=== PATIENT | female | born 1980 | race Caucasian/White ===

== ENCOUNTER 2017-07-25 16:28 | Emergency (ER) | payer OTHER ==
[2017-07-25 16:36] VITALS: RESP 18
[2017-07-25] MEDS ORDERED: SODIUM CHLORIDE 0.9% 1,000 ML IV ONE (17:30)
[2017-07-25] MEDS ORDERED: DEXAMETHASONE SOD PHOSPHATE 10 MG/ML 1 ML VIAL IV STA (17:30)
[2017-07-25] MEDS ORDERED: diphenhydrAMINE 50 MG/ML 1 ML VIAL IVP STA (17:30)
[2017-07-25] MEDS ORDERED: METOCLOPRAMIDE 5 MG/ML 2 ML VIAL IVP STA (17:30)
[2017-07-25] MEDS ORDERED: KETOROLAC 30 MG/ML 1 ML VIAL IVP STA (17:30)
[2017-07-25 18:46] LABS: Basophils # (A) 0.1 k/uL (0-0.2); Basophils % (A) 0 %; Eosinophils # (A) 0.1 k/uL (0-0.7); Eosinophils % (A) 1 %; HCT 39.7 % (34.0-46.0); HGB 12.7 gm/dL (11.4-16.0); Hypochromasia Slight; Lymphocytes % (A) 24 %; MCH 23.7 pg (25.0-35.0); MCHC 31.9 g/dL (31.0-37.0); MCV 74.2 fL (80.0-100.0); Microcytosis Slight; Monocytes # (A) 0.5 k/uL (0-1.0); Monocytes % (A) 4 %; Neutrophils # (A) 8.8 k/uL (1.3-7.7); Neutrophils % (A) 70 %; Platelet Count 195 k/uL (150-450); RBC 5.35 m/uL (3.80-5.40); RDW 15.6 % (11.5-15.5); WBC 12.6 k/uL (3.8-10.6)
[2017-07-25 18:56] LABS: Anion Gap 11 mmol/L; Blood Urea Nitrogen 11 mg/dL (7-17); Calcium 9.3 mg/dL (8.4-10.2); Carbon Dioxide 25 mmol/L (22-30); Chloride 104 mmol/L (98-107); Glucose 92 mg/dL (74-99); Potassium 4.6 mmol/L (3.5-5.1); Sodium 140 mmol/L (137-145)
[2017-07-25 19:01] LABS: Appearance,Urine Clear (Clear); Bacteria,Urine Moderate /hpf; Bilirubin,Urine Negative (Negative); Blood,Urine Negative (Negative); Color,Urine Yellow; Glucose,Urine (UA) Negative (Negative); Ketones,Urine Negative (Negative); Leukocyte Esterase,Urine Small (Negative); Mucus,Urine Rare /hpf; Nitrite,Urine Positive (Negative); Protein,Urine Negative (Negative); RBC,Urine 1 /hpf (0-5); Specific Gravity,Urine 1.013 (1.001-1.035); Squamous Epithelial Cell,Urine 2 /hpf (0-4); Urobilinogen,Urine <2.0 mg/dL (<2.0); WBC,Urine 8 /hpf (0-5)
[2017-07-25 19:11] LABS: Amphetamine Screen,Urine Not Detected (NotDetected); Barbiturate Screen,Urine Detected (NotDetected); Benzodiazepines Screen,Urine Not Detected (NotDetected); Cocaine Screen,Urine Not Detected (NotDetected); Methadone Screen, Urine Not Detected (NotDetected); Opiate Screen,Urine Not Detected (NotDetected); Oxycodone Screen, Urine Not Detected (NotDetected); Phencyclidine Screen,Urine Not Detected (NotDetected); Tricyclic Antidepressant,Urine Not Detected (NotDetected); Urn Cannabinoid Scrn Detected (NotDetected)
[2017-07-25 19:12] LABS: HCG,Quantitative Serum <2.4 mIU/mL
--- NOTE | 2017-07-25 19:24 | ED ---
General Adult HPI - General Chief complaint: Seizure Stated complaint: seizures Time Seen by Provider: 07/25/17 17:15 Source: patient Mode of arrival: wheelchair Limitations: physical limitation - History of Present Illness Initial comments: Patient is a 36-year-old female with a remote history of seizure disorder who presents with a chief complaint of seizure. The patient states that she hasn't had seizures in several years however over the last month she has been having recurrent seizures. These are described as absence seizures. The patient states she's had 16 and the last 48 hours. Her fianc, accompanies her to the emergency department today. He describes two-minute episodes where the patient is a blank stare on her face. He denies any body shaking, or apnea. Patient thinks that this is related to a knot in the back of her head and a headache. - Related Data Home Medications Medication Instructions Recorded Confirmed Methocarbamol [Robaxin] 1,000 mg PO QID 07/25/17 07/25/17 Pregabalin [Lyrica] 200 mg PO BID 07/25/17 07/25/17 Vitamin C/Biotin [Hair, Skin and 1 tab PO DAILY 07/25/17 07/25/17 Nails] clonazePAM [KlonoPIN] 0.5 mg PO Q12H PRN 07/25/1718 traMADol HCL [Ultram] 50 - 100 mg PO TID PRN 07/25/1718 Previous Rx's Medication Instructions Recorded Cephalexin [Keflex] 500 mg PO Q12HR 7 Days #14 cap 07/25/17 Allergies Allergy/AdvReac Type Severity Reaction Status Date / Time duloxetine HCl Allergy Unknown Verified 07/25/17 17:19 [From Cymbalta] Iodinated Contrast- Oral and Allergy Unknown Verified 07/25/17 17:19 IV Dye [Iodinated Contrast Media - IV Dye] latex Allergy Unknown Verified 07/25/17 17:19 methylphenidate HCl Allergy Unknown Verified 07/25/17 17:19 [From Ritalin] morphine Allergy Rash/Hives Verified 07/25/17 17:19 sumatriptan [From Imitrex] Allergy Unknown Verified 07/25/17 17:19 sumatriptan succinate Allergy Unknown Verified 07/25/17 17:19 [From Imitrex] Review of Systems ROS Statement: Those systems with pertinent positive or pertinent negative responses have been documented in the HPI. ROS Other: All systems not noted in ROS Statement are negative. Constitutional: Reports: chills Neurological: Reports: headache Past Medical History Past Medical History: Fibromyalgia, Seizure Disorder Additional Past Medical History / Comment(s): Migraine headaches, History of Any Multi-Drug Resistant Organisms: None Reported Past Surgical History: Back Surgery, Breast Surgery, Section, Cholecystectomy, Orthopedic Surgery, Tubal Ligation Additional Past Surgical History / Comment(s): EGD in 2007, multiple I&D's done to the left breast Past Anesthesia/Blood Transfusion Reactions: Postoperative Nausea & Vomiting ( PONV) Additional Past Anesthesia/Blood Transfusion Reaction / Comment(s): Blood pressure drops per patient Past Psychological History: Anxiety Smoking Status: Current every day smoker Past Alcohol Use History: Rare Past Drug Use History: None Reported General Exam Limitations: physical limitation General appearance: alert, in no apparent distress Head exam: Present: atraumatic, normocephalic Eye exam: Present: normal appearance, PERRL ENT exam: Present: normal exam Neck exam: Present: normal inspection. Absent: meningismus Respiratory exam: Present: normal lung sounds bilaterally. Absent: respiratory distress Cardiovascular Exam: Present: regular rate, normal rhythm GI/Abdominal exam: Present: soft. Absent: distended, tenderness Rectal exam: Present: deferred Extremities exam: Present: normal inspection Neurological exam: Present: alert, oriented X3, abnormal gait (Patient seems to have unsteady gait.), other Psychiatric exam: Present: anxious Skin exam: Present: warm, dry, intact Course Vital Signs 07/25/17 07/25/17 16:32 19:33 Temperature 98.3 F 98.4 F Pulse Rate 97 77 Respiratory 18 18 Rate Blood Pressure 135/75 121/78 O2 Sat by Pulse 99 99 Oximetry Medical Decision Making - Medical Decision Making Patient presents with chief complaint of seizures. On initial evaluation, vital signs are stable, patient is in no acute distress. He states that Dr. Bentley, her primary care doctor, sent her to the emergency department today. Patient will be evaluated with an EKG, basic labs, urinalysis and UDS. Patient complaining of a headache, she was given a headache cocktail for symptomatically relief. EKG performed at 1745 shows normal sinus rhythm with a rate of 78 bpm. EKG is otherwise unremarkable. 8:23 pm I've evaluation of this patient shows evidence of urinary tract infection with a mild elevation in her white count. Labs are otherwise unremarkable. Computed tomography scan of the head without contrast shows no acute intracranial abnormality. I discussed the results and find the patient. She currently states she still in pain. Patient appears anxious, she will be given Xanax prior to discharge. I did discuss this case with Dr. Bentley, the patient's primary care physician, who states that the patient can be discharged and he will see her in the office. Patient was instructed to follow up with primary care in 1-2 days, return to the emergency department if symptoms worsen or change, she was prescribed Keflex for treatment of her urinary tract infection. Patient did not have any further seizure-like episodes in the emergency department. - Lab Data Result diagrams: 07/25/17 18:35 07/25/17 18:35 Lab Results 07/25/17 07/25/17 07/25/17 Range/Units 18:35 18:35 18:40 WBC 12.6 H (3.8-10.6) k/uL RBC 5.35 (3.80-5.40) m/uL Hgb 12.7 (11.4-16.0) gm/dL Hct 39.7 (34.0-46.0) % MCV 74.2 L (80.0-100.0) fL MCH 23.7 L (25.0-35.0) pg MCHC 31.9 (31.0-37.0) g/dL RDW 15.6 H (11.5-15.5) % Plt Count 195 (150-450) k/uL Neutrophils % 70 % Lymphocytes % 24 % Monocytes % 4 % Eosinophils % 1 % Basophils % 0 % Neutrophils # 8.8 H (1.3-7.7) k/uL Lymphocytes # 3.0 (1.0-4.8) k/uL Monocytes # 0.5 (0-1.0) k/uL Eosinophils # 0.1 (0-0.7) k/uL Basophils # 0.1 (0-0.2) k/uL Hypochromasia Slight Microcytosis Slight Sodium 140 (137-145) mmol/L Potassium 4.6 (3.5-5.1) mmol/L Chloride 104 (98-107) mmol/L Carbon Dioxide 25 (22-30) mmol/L Anion Gap 11 mmol/L BUN 11 (7-17) mg/dL Creatinine 0.52 (0.52-1.04) mg/dL Est GFR (CKD-EPI)AfAm >90 (>60 ml/min/1.73 sqM) Est GFR (CKD-EPI)NonAf >90 (>60 ml/min/1.73 sqM) Glucose 92 (74-99) mg/dL Calcium 9.3 (8.4-10.2) mg/dL HCG, Quant <2.4 mIU/mL Urine Color Yellow Urine Appearance Clear (Clear) Urine pH 6.0 (5.0-8.0) Ur Specific Kimberly 1.013 (1.001-1.035) Urine Protein Negative (Negative) Urine Glucose (UA) Negative (Negative) Urine Ketones Negative (Negative) Urine Blood Negative (Negative) Urine Nitrite Positive H (Negative) Urine Bilirubin Negative (Negative) Urine Urobilinogen <2.0 (<2.0) mg/dL Ur Leukocyte Esterase Small H (Negative) Urine RBC 1 (0-5) /hpf Urine WBC 8 H (0-5) /hpf Ur Squamous Epith Cells 2 (0-4) /hpf Urine Bacteria Moderate H (None) /hpf Urine Mucus Rare H (None) /hpf Urine Opiates Screen Not Detected (NotDetected) Ur Oxycodone Screen Not Detected (NotDetected) Urine Methadone Screen Not Detected (NotDetected) Ur Propoxyphene Screen Not Detected (NotDetected) Ur Barbiturates Screen Detected H (NotDetected) U Tricyclic Antidepress Not Detected (NotDetected) Ur Phencyclidine Scrn Not Detected (NotDetected) Ur Amphetamines Screen Not Detected (NotDetected) U Methamphetamines Scrn Not Detected (NotDetected) U Benzodiazepines Scrn Not Detected (NotDetected) Urine Cocaine Screen Not Detected (NotDetected) U Marijuana (THC) Screen Detected H (NotDetected) Disposition Clinical Impression: Witnessed seizure-like activity Disposition: HOME SELF-CARE Condition: Good Instructions: New-Onset Seizure in Adults (ED) Prescriptions: Cephalexin [Keflex] 500 mg PO Q12HR 7 Days #14 cap Is patient prescribed a controlled substance at discharge?: No Referrals: Noam Bentley MD [Primary Care Provider] - 1-2 days
--- NOTE | 2017-07-25 19:26 | CT ---
EXAMINATION TYPE: CT brain wo con DATE OF EXAM: 07/25/2017 COMPARISON: NONE HISTORY: headache, possible seizure CT DLP: 981.[address] of the brain was performed. The ventricles, basal cisterns and sulci overlying the cerebral convexities demonstrate a normal appe arance. There is no evidence for intracranial hemorrhage or sulcal effacement. No mass effects are seen. Osseous calvarium is intact. If symptoms persist consider MRI as clinically warranted. IMPRESSION: 1. No acute intracranial process is seen at this time.
[2017-07-25] MEDS ORDERED: ALPRAZolam 1 MG TAB PO STA (20:15)
[2017-07-25 20:33] VITALS: BP 131/71; PULSE 65
[2017-07-25 20:37] VITALS: TEMP 98
== END 2017-07-25 20:38 | disposition home or self-care (01) ==
LOC: EC 16:28
DX: R51 Headache (principal); N39.0 Urinary tract infection, site not specified; D72.829 Elevated white blood cell count, unspecified; F41.9 Anxiety disorder, unspecified; G40.909 Epilepsy, unspecified, not intractable, without status epilepticus; M79.7 Fibromyalgia; F17.200 Nicotine dependence, unspecified, uncomplicated; Z79.899 Other long term (current) drug therapy; Z91.041 Radiographic dye allergy status; Z91.040 Latex allergy status; Z88.5 Allergy status to narcotic agent; Z88.8 Allergy status to other drugs, medicaments and biological substances; Z86.69 Personal history of other diseases of the nervous system and sense organs
CPT/HCPCS: 99284; 96374; 96375 ×3; 96361 ×2; 36415; 93005; 80048; 85025; 81001; 84702; 80306; 70450; J1200; J1100; J2765; J1885

== ENCOUNTER 2017-10-22 23:01 | Emergency (ER) | payer OTHER ==
[2017-10-22 23:28] VITALS: BP 129/82; PULSE 73; RESP 18; TEMP 98.4
[2017-10-23] MEDS ORDERED: KETOROLAC 60 MG/2 ML VIAL IM STA (00:45)
[2017-10-23] MEDS ORDERED: HYDROcodone/APAP 5-325MG 1 EACH TAB PO STA (00:45)
[2017-10-23] MEDS ORDERED: ORPHENADRINE 30 MG/ML 2 ML VIAL IM STA (00:45)
[2017-10-23] MEDS ORDERED: ONDANSETRON ODT 4 MG TAB PO STA (00:57)
--- NOTE | 2017-10-23 01:50 | XR ---
EXAMINATION TYPE: XR lumbar spine 2 or 3V DATE OF EXAM: 10/23/2017 COMPARISON: 05/15/2009 HISTORY: Fell 3 months ago. Pain. TECHNIQUE: 3 views FINDINGS: There are rods and screws fusing posteriorly L4 and L5. There is laminectomy defect of L4 a nd L5. Sacroiliac joints are intact. Vertebra have normal alignment. There is narrowing of L4-5 disc space. There are old screw is in the S1 vertebra. IMPRESSION: No acute abnormality of the lumbar spine. There is new L4-5 posterior fusion surgery comp ared to old exam. There is revision of the L5-S1 fusion surgery. No fracture seen. There is new L4-5 disc space narrowing compared to old exam.
--- NOTE | 2017-10-23 02:05 | ED ---
Back Pain HPI - General Chief Complaint: Back Pain/Injury Stated Complaint: Lower back and hip pain Time Seen by Provider: 10/22/17 23:42 Source: patient, RN notes reviewed, old records reviewed Limitations: physical limitation - History of Present Illness Initial Comments: This Patient is a 37-year-old female presents with chronic lower back and right hip pain. Patient states that it goes down to the right leg. Patient states that she fell 3 months ago on her porch. She was seen by her primary care provider and started on steroids. She's had no recent falls or trauma. She states that today she was walking her leg gave out. She denies any saddle anesthesias.Patient denies any recent fever, chills, shortness of breath, chest pain, nausea vomiting, numbness or tingling, dysuria or hematuria, constipation or diarrhea, headaches or visual changes, or any other current symptoms - Related Data Home Medications Medication Instructions Recorded Confirmed Methocarbamol [Robaxin] 1,000 mg PO QID 07/25/17 10/22/17 Amitriptyline HCl [Elavil] 50 mg PO HS 10/22/17 10/22/17 Previous Rx's Medication Instructions Recorded Cyclobenzaprine [Flexeril] 10 mg PO TID #15 tab 10/23/17 Dexamethasone 0.75 mg PO DAILY #12 tab 10/23/17 HYDROcodone/APAP 5-325MG [[place] 1 tab PO Q6HR PRN #10 tab 10/23/17 5-325] Ibuprofen 800 mg PO TID #20 tablet 10/23/17 Allergies Allergy/AdvReac Type Severity Reaction Status Date / Time duloxetine HCl Allergy Unknown Verified 10/22/17 23:28 [From Cymbalta] Iodinated Contrast- Oral and Allergy Unknown Verified 10/22/17 23:28 IV Dye [Iodinated Contrast Media - IV Dye] latex Allergy Unknown Verified 10/22/17 23:28 methylphenidate HCl Allergy Unknown Verified 10/22/17 23:28 [From Ritalin] morphine Allergy Rash/Hives Verified 10/22/17 23:28 sumatriptan [From Imitrex] Allergy Unknown Verified 10/22/17 23:28 sumatriptan succinate Allergy Unknown Verified 10/22/17 23:28 [From Imitrex] Review of Systems ROS Statement: Those systems with pertinent positive or pertinent negative responses have been documented in the HPI. ROS Other: All systems not noted in ROS Statement are negative. Past Medical History Past Medical History: Fibromyalgia, Seizure Disorder Additional Past Medical History / Comment(s): Migraine headaches, History of Any Multi-Drug Resistant Organisms: None Reported Past Surgical History: Back Surgery, Breast Surgery, Section, Cholecystectomy, Orthopedic Surgery, Tubal Ligation Additional Past Surgical History / Comment(s): EGD in 2008, multiple I&D's done to the left breast, knees, back fusions Past Anesthesia/Blood Transfusion Reactions: Postoperative Nausea & Vomiting ( PONV) Additional Past Anesthesia/Blood Transfusion Reaction / Comment(s): Blood pressure drops per patient Past Psychological History: Anxiety Smoking Status: Current every day smoker Past Alcohol Use History: Rare Past Drug Use History: None Reported General Exam - General Exam Comments Initial Comments: [id number] female. Alert and oriented. No significant distress. Limitations: physical limitation Head exam: Present: atraumatic, normocephalic, normal inspection Eye exam: Present: normal appearance, PERRL, EOMI. Absent: scleral icterus, conjunctival injection, periorbital swelling ENT exam: Present: normal exam, mucous membranes moist Neck exam: Present: normal inspection. Absent: tenderness, meningismus, lymphadenopathy Respiratory exam: Present: normal lung sounds bilaterally. Absent: respiratory distress, wheezes, rales, rhonchi, stridor Cardiovascular Exam: Present: regular rate, normal rhythm, normal heart sounds. Absent: systolic murmur, diastolic murmur, rubs, gallop, clicks GI/Abdominal exam: Present: soft, normal bowel sounds. Absent: distended, tenderness, guarding, rebound, rigid Extremities exam: Present: normal inspection, full ROM, normal capillary refill. Absent: tenderness, pedal edema, joint swelling, calf tenderness Back exam: Present: normal inspection, tenderness (Lumbar spinal tenderness and right sciatic notch tenderness.) Neurological exam: Present: alert, oriented X3, CN II-XII intact Psychiatric exam: Present: normal affect, normal mood Course Vital Signs 10/22/17 23:25 Temperature 98.4 F Pulse Rate 73 Respiratory 18 Rate Blood Pressure 129/82 O2 Sat by Pulse 100 Oximetry Medical Decision Making - Medical Decision Making 37-year-old female with chronic right hip and back pain. She reports she fell 3 months ago. No imaging done at that time. She was started on steroids with PCP. At this time Patient doesn't systems tenderness or sciatic notch. X-rays were performed. There is evidence of the previous revisions of her surgery. There is some disc space narrowing at L4-L5. Patient part of results. She'll follow up with her orthopedic helicopter specialist. The meantime we'll start Patient again and stress steroids also relaxers and pain medication. Discussed follow-up with PCP. All questions answered return parameters were discussed. - Radiology Data Radiology results: report reviewed No acute abnormality of the lumbar spine. There is no L4 posterior fusion surgery. On exam. Revision of L5-S1 fusion surgery. No fracture seen. L4-L5 disc space narrowing compared old exam. Disposition Clinical Impression: Sciatica, right side, Degeneration of intervertebral disc Disposition: HOME SELF-CARE Condition: Good Instructions: Acute Low Back Pain (ED) Additional Instructions: Patient has up with flavor maker. Return to emergency department if any alarming signs or symptoms occur. Prescriptions: Cyclobenzaprine [Flexeril] 10 mg PO TID #15 tab Dexamethasone 0.75 mg PO DAILY #12 tab HYDROcodone/APAP 5-325MG [[place] 5-325] 1 tab PO Q6HR PRN #10 tab PRN Reason: Pain Ibuprofen 800 mg PO TID #20 tablet Is patient prescribed a controlled substance at d/c from ED?: Yes When asked, does pt state using other controlled substances?: No If prescribed controlled substance>3 days was MAPS reviewed?: Prescribed <3 Days If opioid is for acute pain is fill amount 7 days or less?: Yes If Rx opioid, was Start Talking consent form obtained?: Yes Referrals: Noam Bentley MD [Primary Care Provider] - 1-2 days Time of Disposition: 02:01
== END 2017-10-23 02:28 | disposition home or self-care (01) ==
LOC: EC 23:01
DX: M51.16 Intervertebral disc disorders with radiculopathy, lumbar region (principal); M48.061 Spinal stenosis, lumbar region without neurogenic claudication; Z98.1 Arthrodesis status; F41.9 Anxiety disorder, unspecified; F17.200 Nicotine dependence, unspecified, uncomplicated; Z79.899 Other long term (current) drug therapy; Z88.5 Allergy status to narcotic agent; Z88.8 Allergy status to other drugs, medicaments and biological substances; Z91.040 Latex allergy status; Z91.041 Radiographic dye allergy status
CPT/HCPCS: 72100; 99284; 96372 ×2; J2360; J1885

== ENCOUNTER 2017-11-13 17:07 | Emergency (ER) | payer OTHER ==
[2017-11-13 17:14] VITALS: TEMP 98.1
[2017-11-13] MEDS ORDERED: HYDROcodone/APAP 10-325MG 1 EACH TAB PO ONE (18:01)
[2017-11-13 18:24] LABS: Anisocytosis Slight; Basophils % (A) 0 %; Eosinophils # (A) 0.1 k/uL (0-0.7); Eosinophils % (A) 1 %; HCT 39.3 % (34.0-46.0); HGB 12.8 gm/dL (11.4-16.0); Lymphocytes % (A) 34 %; MCH 24.9 pg (25.0-35.0); MCHC 32.5 g/dL (31.0-37.0); MCV 76.5 fL (80.0-100.0); Mean Platelet Volume 7.3; Microcytosis Slight; Monocytes # (A) 0.4 k/uL (0-1.0); Monocytes % (A) 4 %; Neutrophils # (A) 5.3 k/uL (1.3-7.7); Neutrophils % (A) 59 %; Platelet Count 196 k/uL (150-450); RBC 5.14 m/uL (3.80-5.40); RDW 16.7 % (11.5-15.5); WBC 8.9 k/uL (3.8-10.6)
--- NOTE | 2017-11-13 18:35 | ED ---
Back Pain HPI - General Chief Complaint: Back Pain/Injury Stated Complaint: back pain Time Seen by Provider: 11/13/17 17:13 Source: patient Limitations: no limitations - History of Present Illness Initial Comments: This is a37yo female with PMH of chronic low back pain with multiple back surgery including 5 surgeries for debridment following infection from 2014 surgery. Pt states that her original low back fusion was performed by Dr. Whelan and the second Dr. Dobbins where she experienced post-operative infection. Pt has been following her PCP for pain mgmt with norci 7.5 and ibuprofen 800mg. Pt states that since June he low back pain has been worsening, however the last 3 weeks have been the worse. Patient states her baseline back pain as a 6 out of 10 that radiates down legs bilaterally and throbbing in nature. She states that the pain now is greater than 10 out of 10 burning, stabbing pain down the legs bilaterally. Patient denies any trauma or falls that could've caused the change in her back pain. Her primary care referred her to a neurosurgeon who is associated with formerly [facility], [facility]–1983, she has a scheduled appointment for November 17 and an MRI scheduled for November 16. However for the past 2 days patient has increasing right leg weakness. He states she feels though the right leg could give out at any time. Today when she admitted upon ROS of small amount of urinary incontinence. pt could not longer take the pain and she decided to present to the emergency department. She states this pain feels like her chronic low back pain however worse than normal. Pt admits to b/l leg weakness, parathesias and decreased sensation of the lower extremities b/l, and urinary incontinence. Pt denies fever, chills, IV drug use, recent weight loss, injury to the back or lower extremities,, shortness of breath, chest pain, abdominal pain, nausea or vomiting, numbness or tingling, dysuria or hematuria, constipation or diarrhea, headaches or visual changes, or any other complaints. Pt is currently menstruating, denies chance of . - Related Data Home Medications Medication Instructions Recorded Confirmed Methocarbamol [Robaxin] 1,000 mg PO QID PRN 07/25/17 11/13/17 Amitriptyline HCl [Elavil] 50 mg PO HS 10/22/17 11/13/17 Cyclobenzaprine [Flexeril] 10 mg PO TID PRN 11/13/17 11/13/17 HYDROcodone/APAP 7.5-325MG [Rueter 1 - 2 tab PO Q6H PRN 11/13/17 11/13/17 7.5-325] Ibuprofen 800 mg PO TID PRN 11/13/17 11/13/17 Allergies Allergy/AdvReac Type Severity Reaction Status Date / Time duloxetine HCl Allergy Unknown Verified 11/13/17 18:27 [From Cymbalta] Iodinated Contrast- Oral and Allergy Unknown Verified 11/13/17 18:27 IV Dye [Iodinated Contrast Media - IV Dye] latex Allergy Unknown Verified 11/13/17 18:27 methylphenidate HCl Allergy Unknown Verified 11/13/17 18:27 [From Ritalin] morphine Allergy Rash/Hives Verified 11/13/17 18:27 sumatriptan [From Imitrex] Allergy Unknown Verified 11/13/17 18:27 sumatriptan succinate Allergy Unknown Verified 11/13/17 18:27 [From Imitrex] Review of Systems ROS Statement: Those systems with pertinent positive or pertinent negative responses have been documented in the HPI. ROS Other: All systems not noted in ROS Statement are negative. Constitutional: Denies: fever, chills, night sweats ENT: Denies: ear pain Respiratory: Denies: cough, dyspnea, wheezes, hemoptysis, stridor Cardiovascular: Denies: chest pain, palpitations Endocrine: Denies: fatigue Gastrointestinal: Denies: abdominal pain, nausea, vomiting, diarrhea, constipation Genitourinary: Denies: urgency, dysuria, frequency, hematuria Musculoskeletal: Reports: as per HPI, back pain Skin: Denies: rash, lesions, change in color Neurological: Reports: weakness, numbness, paresthesias. Denies: headache, confusion, abnormal gait Past Medical History Past Medical History: Fibromyalgia, Seizure Disorder Additional Past Medical History / Comment(s): Migraine headaches, chronic low back pain-multiple surgeries/lumbar fusion History of Any Multi-Drug Resistant Organisms: None Reported Past Surgical History: Back Surgery, Breast Surgery, Section, Cholecystectomy, Orthopedic Surgery, Tubal Ligation Additional Past Surgical History / Comment(s): EGD in 2007, multiple I&D's done to the left breast, knees, back fusions Past Anesthesia/Blood Transfusion Reactions: Postoperative Nausea & Vomiting ( PONV) Additional Past Anesthesia/Blood Transfusion Reaction / Comment(s): Blood pressure drops per patient Past Psychological History: Anxiety Smoking Status: Current every day smoker Past Alcohol Use History: Rare Past Drug Use History: None Reported General Exam - General Exam Comments Initial Comments: General: The patient is awake and alert, in no distress, and does not appear acutely ill. Eye: Pupils are equal, round and reactive to light, extra-ocular movements are intact. No nystagmus. There is normal conjunctiva bilaterally. No signs of icterus. Ears, nose, mouth and throat: There are moist mucous membranes and no oral lesions. Neck: The neck is supple, there is no tenderness or JVD. Cardiovascular: There is a regular rate and rhythm. No murmur, rub or gallop is appreciated. Respiratory: Lungs are clear to auscultation, respirations are non-labored, breath sounds are equal. No wheezes, stridor, rales, or rhonchi. Gastrointestinal: Soft, non-distended, non-tender abdomen without masses or organomegaly noted. There is no rebound or guarding present. No CVA tenderness. Bowel sounds are unremarkable. No tenderness to palpation over the superior bladder margin. Musculoskeletal: Decreased range of motion with for flexion, hyperextension, lateral flexion or rotation of the lumbar spine secondary to pain. Pain to palpation midline over the lumbar spine. No paravertebral tenderness. No lesions, erythema or rashes of the overlying skin of the lumbar spine. Normal ROM, other lower extremities bilaterally. 4/5 strength of the right leg, 5/5 left leg. Sensation intact however pt states it feels decreased. Pulses equal bilaterally 2+. Hyerrflexia of the patellar and achilles reflexes. Rectal exam- normal normal tone. Pt unable to heel or toe walk secondary to pain. (+) SLR b/ l. Neurological: A&O x 3. CN II-XII intact, There are no obvious motor or sensory deficits. Coordination appears grossly intact. Speech is normal. Skin: Skin is warm and dry and no rashes or lesions are noted. Psychiatric: Cooperative, appropriate mood & affect, normal judgment. Limitations: no limitations Course Vital Signs 11/13/17 11/13/17 17:12 22:46 Temperature 98.1 F 98.1 F Pulse Rate 106 H 82 Respiratory 20 18 Rate Blood Pressure 129/67 123/75 O2 Sat by Pulse 100 97 Oximetry Medical Decision Making - Medical Decision Making Given pt physical examination findings and hx i was concerned for possible cauda equina syndrome, pt given 0.5mg dilaudid for pain mgmt stating that she has never had a reaction in the past. Post residual void 315ml. Rectal exam normal tone. MRI obtained at 7:00pm revealing no areas of severe stenosis of the spinal column or abnormalities of the cauda equina. Radiologist did note mild hydronephrosis.Pt was able to void during her visit, stating it was more than her original void at the beginning of the visit. Pt was given home dose of norco for low back pain, for which she stated helped . CT was reviewed by Dr. Huang, case was discussed in detail. At this time we felt pt was stable for d/ c with urology and neurology f/u. Pt has scheduled neurology appointment for 01/25. Pt was told to keep this appointment and return to the ED for any worsening symptoms. Pt stated she was ready for discharge. Pt discharge instructions were given prior to the addition of urology f/u. However pt was called at home and instructed to call Dr. Arnold to schedule appointment in next 24 hours for urinary incontinence and mild hydronephrosis. Pt agreed. - Lab Data Result diagrams: 11/13/17 18:00 11/13/17 18:00 Lab Results 11/13/17 11/13/17 Range/Units 18:00 18:00 WBC 8.9 (3.8-10.6) k/uL RBC 5.14 (3.80-5.40) m/uL Hgb 12.8 (11.4-16.0) gm/dL Hct 39.3 (34.0-46.0) % MCV 76.5 L (80.0-100.0) fL MCH 24.9 L (25.0-35.0) pg MCHC 32.5 (31.0-37.0) g/dL RDW 16.7 H (11.5-15.5) % Plt Count 196 (150-450) k/uL Neutrophils % 59 % Lymphocytes % 34 % Monocytes % 4 % Eosinophils % 1 % Basophils % 0 % Neutrophils # 5.3 (1.3-7.7) k/uL Lymphocytes # 3.0 (1.0-4.8) k/uL Monocytes # 0.4 (0-1.0) k/uL Eosinophils # 0.1 (0-0.7) k/uL Basophils # 0.0 (0-0.2) k/uL Anisocytosis Slight Microcytosis Slight Sodium 141 (137-145) mmol/L Potassium 3.7 (3.5-5.1) mmol/L Chloride 108 H (98-107) mmol/L Carbon Dioxide 24 (22-30) mmol/L Anion Gap 9 mmol/L BUN 14 (7-17) mg/dL Creatinine 0.64 (0.52-1.04) mg/dL Est GFR (CKD-EPI)AfAm >90 (>60 ml/min/1.73 sqM) Est GFR (CKD-EPI)NonAf >90 (>60 ml/min/1.73 sqM) Glucose 86 (74-99) mg/dL Calcium 9.5 (8.4-10.2) mg/dL Total Bilirubin 0.8 (0.2-1.3) mg/dL AST 19 (14-36) U/L ALT 21 (9-52) U/L Alkaline Phosphatase 42 (38-126) U/L Total Protein 6.9 (6.3-8.2) g/dL Albumin 4.1 (3.5-5.0) g/dL Disposition Clinical Impression: Low back pain Disposition: HOME SELF-CARE Condition: Good Instructions: Acute Low Back Pain (ED) Additional Instructions: Please use medication as discussed. Please follow-up with family doctor in the next 2 days. Please follow-up with your neurologist as scheduled. Please return to emergency room if the symptoms increase or worsen or for any other concerns as discussed.. Is patient prescribed a controlled substance at d/c from ED?: No Referrals: Noam Bentley MD [Primary Care Provider] - 1-2 days Time of Disposition: 22:29
[2017-11-13] MEDS ORDERED: methylPREDNISolone SOD SUCCI 125 MG/2 ML VIAL IV STA (18:36)
[2017-11-13] MEDS ORDERED: HYDROmorphone 0.5 MG/0.5 ML SYRINGE IVP STA (18:36)
[2017-11-13] MEDS ORDERED: diphenhydrAMINE 50 MG/ML 1 ML VIAL IVP STA (18:36)
[2017-11-13] MEDS ORDERED: FAMOTIDINE 20 MG/2 ML VIAL IV STA (18:36)
[2017-11-13 18:38] LABS: ALT 21 U/L (9-52); AST 19 U/L (14-36); Albumin 4.1 g/dL (3.5-5.0); Alkaline Phosphatase 42 U/L (38-126); Anion Gap 9 mmol/L; Blood Urea Nitrogen 14 mg/dL (7-17); Calcium 9.5 mg/dL (8.4-10.2); Carbon Dioxide 24 mmol/L (22-30); Chloride 108 mmol/L (98-107); Glucose 86 mg/dL (74-99); Potassium 3.7 mmol/L (3.5-5.1); Sodium 141 mmol/L (137-145); Total Bilirubin 0.8 mg/dL (0.2-1.3); Total Protein 6.9 g/dL (6.3-8.2)
[2017-11-13] MEDS ORDERED: ONDANSETRON 4 MG/2 ML VIAL IVP STA (19:10)
--- NOTE | 2017-11-13 20:18 | MR ---
EXAMINATION TYPE: MR lumbar spine wo con DATE OF EXAM: 11/13/2017 COMPARISON: Plain film 10/23/2017 HISTORY: Back pain TECHNIQUE: Multiplanar, multisequence images of the lumbar spine were acquired. No contrast was administered. L1-L2: Normal disc appearance without desiccation. No herniation, protrusion or disc bulging. No ca nal stenosis is present. Foramina are patent bilaterally. L2-L3: Normal disc appearance without desiccation. No herniation, protrusion or disc bulging. No ca nal stenosis is present. Foramina are patent bilaterally. L3-L4: There is a posterior disc herniation, some associated facet arthropathy suspected resulting in a trefoil appearance of the thecal sac, at least moderate canal stenosis is suspected. There may be some foraminal encroachment bilaterally. L4-L5: Susceptibility artifact is extensive. No definite spinal stenosis. No definite foraminal encro achment. L5-S1: No significant spinal stenosis or foraminal encroachment. No gross disc herniation. Lumbar segments are intact. No paraspinal masses are identified. Conus medullaris has a normal appe arance. There is multilevel spondylosis, loss of disc height and signal at L3-4, L4-5 and L5-S1 with endplate discogenic marrow signal change. Posterior lumbar fusion present at L4-5, transpedicular scr ews are noted on the right at S1 is fractured as noted on plain film, susceptibility artifact limits evaluation. Question some mild hydronephrosis within the kidneys. IMPRESSION: Noncontrast exam. Extensive artifact. Suspect there is some spinal stenosis, disc herniation L3-4. Po ssible hydronephrosis within the kidneys.
[2017-11-13] MEDS ORDERED: HYDROcodone/APAP 7.5-325MG 1 EACH TAB PO ONE (22:29)
[2017-11-13 22:49] VITALS: BP 123/75; PULSE 82; RESP 18
== END 2017-11-13 22:48 | disposition home or self-care (01) ==
LOC: EC 17:07
DX: M54.5 Low back pain (principal); N13.30 Unspecified hydronephrosis; M62.81 Muscle weakness (generalized); M79.7 Fibromyalgia; F41.9 Anxiety disorder, unspecified; F17.200 Nicotine dependence, unspecified, uncomplicated; Z79.899 Other long term (current) drug therapy; Z91.041 Radiographic dye allergy status; Z91.040 Latex allergy status; Z88.5 Allergy status to narcotic agent; Z88.8 Allergy status to other drugs, medicaments and biological substances; Z98.890 Other specified postprocedural states; Z53.8 Procedure and treatment not carried out for other reasons
CPT/HCPCS: 51798; 36415; 80053; 85025; 72148; 99284; 96374; 96375 ×4; J1200; J2930; J2405; J1170